=== PATIENT | female | born 1950 | race Hispanic/Latino ===

== ENCOUNTER 2017-08-03 12:41 | Observation (INO) | payer MEDICARE, OTHER ==
[~2017-08-03] VITALS: Ht 154.9 cm; Wt 77.1 kg
[2017-08-03] MEDS ORDERED: SODIUM CHLORIDE 0.9% 1000ML 1,000 ML IV ONE (13:19)
[2017-08-03 13:21] LABS: EOSINOPHILS % (AUTO) 3.4 % (0.0-8.0); HEMATOCRIT 36.3 % (36-48); LYMPHOCYTES % (AUTO) 26.8 % (21.0-51.0); MEAN CORPUSCULAR HEMOGLOBIN 31.2 pg (27.0-33.0); MEAN CORPUSCULAR HGB CONC 34.4 g/dL (32.0-36.0); MEAN CORPUSCULAR VOLUME 90.7 fL (79-99); MONOCYTES % (AUTO) 7.9 % (3.0-13.0); NEUTROPHILS % (AUTO) 60.9 % (40.0-77.0); PLATELET COUNT (AUTO) 352 K/uL (130-400); RED BLOOD CELL COUNT(AUTO) 4.01 MIL/uL (4.00-5.50); RED CELL DISTRIBUTION WIDTH 13.4 % (11.0-15.5); WHITE BLOOD COUNT (AUTO) 11.2 K/uL (4.8-10.8)
[2017-08-03 13:29] LABS: CREATININE 0.7 mg/dL (0.5-1.5); POTASSIUM 3.7 mmol/L (3.5-5.1)
[2017-08-03 13:33] LABS: ALBUMIN 3.3 g/dL (3.5-5.0); BILIRUBIN,TOTAL 0.6 mg/dL (0.2-1.0)
[2017-08-03 13:34] LABS: INR 0.95 (0.85-1.15); PARTIAL THROMBOPLASTIN TIME 28.2 SEC (26.3-35.5)
[2017-08-03] MEDS ORDERED: ASPIRIN 325 MG TABLET ONE (14:36)
[2017-08-03 16:00] VITALS: BP 145/80
[2017-08-03] MEDS ORDERED: LORA10CA9 PO (17:09)
[2017-08-03] MEDS ORDERED: BENZ-51 PO (17:09)
[2017-08-03 19:00] VITALS: BP 141/78
[2017-08-03] MEDS ORDERED: ACETAMINOPHEN 325 MG TAB PO PRN (20:45)
[2017-08-03 23:00] VITALS: BP 135/70
[2017-08-04 03:00] VITALS: BP 125/69
[2017-08-04 06:00] LABS: HEMATOCRIT 35.6 % (36-48); MEAN CORPUSCULAR HEMOGLOBIN 30.9 pg (27.0-33.0); MEAN CORPUSCULAR HGB CONC 34.1 g/dL (32.0-36.0); MEAN CORPUSCULAR VOLUME 90.6 fL (79-99); PLATELET COUNT (AUTO) 381 K/uL (130-400); RED BLOOD CELL COUNT(AUTO) 3.93 MIL/uL (4.00-5.50); RED CELL DISTRIBUTION WIDTH 13.7 % (11.0-15.5); WHITE BLOOD COUNT (AUTO) 11.3 K/uL (4.8-10.8)
[2017-08-04 06:20] LABS: CREATININE 0.7 mg/dL (0.5-1.5); POTASSIUM 4.1 mmol/L (3.5-5.1)
[2017-08-04 07:28] LABS: BASOPHILS % (MANUAL) 2 % (0-2); EOSINOPHILS % (MANUAL) 2 % (1-6); LYMPHOCYTES % (MANUAL) 27 % (22-44); MAN.DIFF COMMENT-IMPRESSION MANUAL DIFFERENTIAL; MONOCYTES % (MANUAL) 2 % (2-9); PLATELET MORPHOLOGY COMMENT ADEQUATE; SEGMENTED NEUTROPHILS % 67 % (40-70)
[2017-08-04 08:00] VITALS: BP 130/76
[2017-08-04] MEDS ORDERED: ASPIRIN 325 MG TABLET PO SCH (09:00)
[2017-08-04] MEDS ORDERED: LISINOPRIL 40 MG TABLET PO SCH (09:00)
[2017-08-04 11:00] VITALS: BP 117/81
[2017-08-04 16:00] VITALS: BP 112/68
[2017-08-04] MEDS ORDERED: ATORVASTATIN CALCIUM 40 MG TABLET PO SCH (21:00)
[2017-08-05] MEDS ORDERED: LISINOPRIL 10 MG TABLET PO SCH (09:00)
== END 2017-08-04 19:40 | disposition home or self-care (01) ==
LOC: EDH 12:41 → 3BH 14:00
PROVIDERS: ADMIT Internal Medicine Infectious Disease; ATTEND Internal Medicine Infectious Disease
DX: R29.810 Facial weakness (principal); E78.5 Hyperlipidemia, unspecified; I10 Essential (primary) hypertension; D72.829 Elevated white blood cell count, unspecified; Z79.01 Long term (current) use of anticoagulants
CPT/HCPCS: 36415 ×2; 70450; 70544; 70551; 80048; 80053; 80061; 82948; 83735; 84484; 85025 ×2; 85610; 85730; 93005; 93306; 93880; 99285; G0378 ×30; J7030

== ENCOUNTER 2019-01-02 16:30 | Inpatient (IN) | payer OTHER ==
[~2019-01-02] VITALS: Ht 162.6 cm; Wt 67.0 kg
[~2019-01-02 16:30] MED LIST: BENZ-51 PO; LORA10CA9 PO
[2019-01-02] MEDS ORDERED: IPRATROPIUM/ALBUTEROL SULFATE 3 ML SOLUTION IH ONE (17:00)
[2019-01-02] MEDS ORDERED: MORPHINE SULFATE 2 MG/ML 1ML SYG ONE (17:06)
[2019-01-02 17:24] LABS: BASOPHILS % (AUTO) 0.5 % (0.0-5.0); EOSINOPHILS % (AUTO) 0.3 % (0.0-8.0); HEMATOCRIT 38.8 % (36-48); LYMPHOCYTES % (AUTO) 8.4 % (21.0-51.0); MEAN CORPUSCULAR HEMOGLOBIN 29.6 pg (27.0-33.0); MEAN CORPUSCULAR HGB CONC 32.4 g/dL (32.0-36.0); MEAN CORPUSCULAR VOLUME 91.4 fL (79-99); MONOCYTES % (AUTO) 2.4 % (3.0-13.0); NEUTROPHILS % (AUTO) 88.4 % (40.0-77.0); NUCLEATED RED BLOOD CELLS 0.1 % (0.0-0.19); PLATELET COUNT (AUTO) 417 K/uL (130-400); RED BLOOD CELL COUNT(AUTO) 4.25 MIL/uL (4.00-5.50); RED CELL DISTRIBUTION WIDTH 17.5 % (11.0-15.5); WHITE BLOOD COUNT (AUTO) 21.1 K/uL (4.8-10.8)
[2019-01-02 17:37] LABS: CREATININE 0.6 mg/dL (0.5-1.5); POTASSIUM 4.3 mmol/L (3.5-5.1)
[2019-01-02 23:19] VITALS: BP 124/69
[2019-01-03] MEDS ORDERED: IPRATROPIUM/ALBUTEROL SULFATE 3 ML SOLUTION IH ONE (01:10)
[2019-01-03] MEDS ORDERED: CEFTRIAXONE SODIUM 1 GM IVP SCH (02:00)
[2019-01-03] MEDS: IPRATROPIUM/ALBUTEROL SULFATE 3 ML SOLUTION IH SCH ×6 (02:00→21:39)
[2019-01-03] MEDS ORDERED: SODIUM CHLORIDE 0.9% 250 ML IV ONE (02:59)
[2019-01-03 03:00] VITALS: BP 117/71
[2019-01-03] MEDS ORDERED: VANCOMYCIN PROTOCOL PER PHARMACY IV SCH (07:15)
[2019-01-03 07:53] VITALS: BP 123/67
[2019-01-03] MEDS: VANCOMYCIN 1GM+NS 250ML 250 ML IV SCH ×2 (08:19→20:21)
--- NOTE | 2019-01-03 11:06 | NUR ---
Patient's saturation was 81% on nonrebreather mask. Spoke to patient, patient's and son, encouraging the use of the bipap. Son stated patient could not tolerate mask due to anxiety. Titrated pressure for patient toleration and ended up with CPAP of 8 with 100% FiO2. Because patient was tachycardic, breathing treatment not administered at this time. Saturation of 93% achieved with CPAP Addendum: 01/03/19 at 1118 by JOSE COOPER RT Amended: Links added.
[2019-01-03] MEDS: ZOSYN 3.375GM+NS 50ML 50 ML IV SCH ×3 (11:13→22:55)
[2019-01-03 11:26] VITALS: BP 135/71
--- NOTE | 2019-01-03 11:35 | NUR ---
DR BAY PAGED RETURN CALL INFORMED OF PATIENT CHANGED FROM B-PAP TO C-PAP AND PATIENT BEING HAVING ANXIETY AND ORDERS RECEIVED FOR ATIVAN 1 MG IV EVERY 6 HOUR PRN AND MORPHINE 2 MG IV EVERY 6 HOURS PRN, ORDERS PLACED
[2019-01-03] MEDS: LORAZEPAM 2 MG/ML 1 ML VIAL IVP PRN ×3 (11:50→20:54)
[2019-01-03] MEDS: MORPHINE SULFATE 2 MG/ML 1ML SYG IVP PRN ×2 (11:52→17:18)
[2019-01-03 16:00] VITALS: BP 128/74
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
[2019-01-03 19:00] VITALS: BP 129/80
[2019-01-03] MEDS ORDERED: KETOROLAC TROMETHAMINE 15MG/ML IV PRN (20:15)
[2019-01-03] MEDS ORDERED: KETOROLAC TROMETHAMINE 15MG/ML ONE (20:18)
[2019-01-03] MEDS ORDERED: LORA0.5T83 PO (20:21)
[2019-01-03] MEDS ORDERED: PRED20TA3 PO (20:32)
[2019-01-03] MEDS ORDERED: ACET650S14 RC (20:32)
[2019-01-03] MEDS ORDERED: AMLO5TAB9 PO (20:32)
[2019-01-03] MEDS ORDERED: SENN8.6T32 PO (20:32)
[2019-01-03] MEDS ORDERED: MONT10TA24 PO (20:32)
[2019-01-03] MEDS ORDERED: MORP5L PO (20:32)
[2019-01-03 23:00] VITALS: BP 100/56
[2019-01-04 03:00] VITALS: BP 113/77
[2019-01-04] MEDS: LORAZEPAM 2 MG/ML 1 ML VIAL IVP PRN (03:08)
[2019-01-04 05:08] LABS: HEMATOCRIT 39.5 % (36-48); MEAN CORPUSCULAR HEMOGLOBIN 29.9 pg (27.0-33.0); MEAN CORPUSCULAR HGB CONC 32.2 g/dL (32.0-36.0); MEAN CORPUSCULAR VOLUME 92.9 fL (79-99); PLATELET COUNT (AUTO) 403 K/uL (130-400); RED BLOOD CELL COUNT(AUTO) 4.25 MIL/uL (4.00-5.50); RED CELL DISTRIBUTION WIDTH 17.7 % (11.0-15.5)
[2019-01-04 05:36] LABS: CREATININE 1.1 mg/dL (0.5-1.5); POTASSIUM 4.2 mmol/L (3.5-5.1)
[2019-01-04 05:38] LABS: BAND NEUTROPHILS % (MANUAL) 17 % (0-2); LYMPHOCYTES % (MANUAL) 14 % (22-44); MAN.DIFF COMMENT-IMPRESSION MANUAL DIFFERENTIAL; MONOCYTES % (MANUAL) 8 % (2-9); PLATELET MORPHOLOGY COMMENT ADEQUATE; SEGMENTED NEUTROPHILS % 61 % (40-70)
[2019-01-04] MEDS: IPRATROPIUM/ALBUTEROL SULFATE 3 ML SOLUTION IH SCH ×3 (06:00→13:48)
[2019-01-04 08:00] VITALS: BP 123/69
[2019-01-04] MEDS: ZOSYN 3.375GM+NS 50ML 50 ML IV SCH ×2 (08:08→16:40)
[2019-01-04] MEDS: MORPHINE SULFATE 4 MG/1ML SYG IV SCH ×3 (08:30→16:40)
[2019-01-04] MEDS: VANCOMYCIN 1GM+NS 250ML 250 ML IV SCH (08:31)
--- NOTE | 2019-01-04 08:48 | NUR ---
DR. MONROE HERE EARLIER AND ORDERED MORPHINE 4MG IV Q 4 HRS. SPOUSE REFUSING UNTIL FAMILY GETS HERE.
--- NOTE | 2019-01-04 10:12 | NUR ---
HOSPICE/EMOTIONAL SUPPORT Sw met with pt 's daughter who states Dr Andrew was there earlier and told them that pt will probably pass today. Daughter states that they will not be returning to hospice and pt will pass here. Sw provided emotional support
--- NOTE | 2019-01-04 11:41 | NUR ---
INPT HOSPICE Sw met with pt's daughter Homer and educated on inpt hospice services. Daughter is agreeable to referral to [facility]. SW spoke to Laura and made referral, and faxed pt info to office. Waiting for response on acceptance
[2019-01-04 12:00] VITALS: BP 104/66
[2019-01-04] MEDS ORDERED: VANCOMYCIN 1GM+NS 250ML 250 ML IV SCH (12:00)
[2019-01-04 16:00] VITALS: BP 103/68
--- NOTE | 2019-01-04 17:17 | NUR ---
IN HOSPICE Sw spoke to Laura at [facility]. Pt has been accepted, pending Leslye nurse to admit.
--- NOTE | 2019-01-04 18:43 | NUR ---
SERVICES HAVE BEEN TRANSFERRED TO [facility], DR MONROE WILL REMAIN ATTENDING MD.
== END 2019-01-04 17:27 | disposition hospice, inpatient (51) | DRG 189 ==
LOC: EDH 16:30 → EDHIP 21:55 → OBSVTOIN 21:55 → 3DH 22:27
PROVIDERS: ADMIT Internal Medicine; ATTEND Internal Medicine
PROC: 5A09357 Assistance with Respiratory Ventilation, Less than 24 Consecutive Hours, Continuous Positive Airway Pressure (ICD-10-PCS; principal; 2019-01-03)
DX: J96.21 Acute and chronic respiratory failure with hypoxia (principal); J90 Pleural effusion, not elsewhere classified; J84.10 Pulmonary fibrosis, unspecified; J44.9 Chronic obstructive pulmonary disease, unspecified; D72.829 Elevated white blood cell count, unspecified; E11.9 Type 2 diabetes mellitus without complications; F41.9 Anxiety disorder, unspecified; Z51.5 Encounter for palliative care; Z99.81 Dependence on supplemental oxygen
CPT/HCPCS: 36415; 71045; 80048; 83880; 85025; 85027; 85060; 93005; 94640; 94660; 94664; 99291; G0378; J0696; J1885; J2060; J2270; J2543; J3370; J7030

== ENCOUNTER 2019-01-04 17:28 | Inpatient (IN) | payer OTHER ==
[~2019-01-04] VITALS: Ht 152.4 cm; Wt 61.2 kg
[~2019-01-04 17:28] MED LIST changes: +ACET650S14 RC; +AMLO5TAB9 PO; -BENZ-51 PO; +LORA0.5T83 PO; -LORA10CA9 PO; +MONT10TA24 PO; +MORP5L PO; +PRED20TA3 PO; +SENN8.6T32 PO
[2019-01-04 19:00] VITALS: BP 128/65
[2019-01-04] MEDS ORDERED: MORPHINE SULFATE 2 MG/ML 1ML SYG IVP PRN (20:00)
[2019-01-04] MEDS ORDERED: ONDANSETRON HCL 4 MG/2 ML VIAL IVP PRN (20:15)
[2019-01-04] MEDS ORDERED: GLYCOPYRROLATE 1 MG/5 ML SYRINGE IV PRN (20:15)
[2019-01-04] MEDS ORDERED: ALBUTEROL SULFATE 0.083% 2.5 MG/3 ML INH IH PRN (20:15)
[2019-01-04] MEDS ORDERED: BISACODYL 10 MG SUPP.RECT RC PRN (20:15)
[2019-01-04] MEDS ORDERED: ACETAMINOPHEN 650 MG SUPPOSITORY RC PRN (20:15)
[2019-01-04] MEDS: MORPHINE SULFATE 2 MG/ML 1ML SYG IVP PRN ×2 (21:05→23:35)
[2019-01-04] MEDS: LORAZEPAM 2 MG/ML 1 ML VIAL IVP PRN (21:34)
[2019-01-04] MEDS: IPRATROPIUM/ALBUTEROL SULFATE 3 ML SOLUTION IH SCH (21:42)
[2019-01-04 23:00] VITALS: BP 97/65
[2019-01-05] MEDS: IPRATROPIUM/ALBUTEROL SULFATE 3 ML SOLUTION IH SCH ×2 (01:21→06:00)
[2019-01-05] MEDS: LORAZEPAM 2 MG/ML 1 ML VIAL IVP PRN (02:11)
[2019-01-05 03:00] VITALS: BP 84/55
[2019-01-05 07:00] VITALS: BP 74/49
[2019-01-05] MEDS ORDERED: MORPHINE SULFATE 4 MG/1ML SYG IV SCH (08:15)
[2019-01-05] MEDS ORDERED: MORPHINE SULFATE 4 MG/1ML SYG ONE (08:15)
--- NOTE | 2019-01-05 10:17 | NUR ---
EMOTIONAL SUPPORT EMOTIONAL SUPPORT SW did follow up visit on pt and family. Family very emotional at bedside. SW called Adrienne at [facility] and requested scrub technician and SW visit. Per Adrienne, Dr Andrew is continuing as attending and all orders must be from him.
--- NOTE | 2019-01-05 10:56 | NUR ---
PRONOUNCEMENT PT IS DNR AND IS ON HOSPICE BENEFIT, FAMILY AT BEDSIDE. PT IS UNRESPONSIVE, NO HEART TONES, NO RESPIRATIONS AND BILATERAL PUPILS UNREACTIVE TO LIGHT. PT PRONOUNCED AT THIS TIME.
--- NOTE | 2019-01-05 11:21 | NUR ---
Pt . Sw contacted by [facility] SW. She was with family when pt and she provided emotional support.
== END 2019-01-05 10:56 | disposition expired | DRG 189 ==
LOC: 3DH 17:28
PROVIDERS: ADMIT Internal Medicine; ATTEND Internal Medicine
DX: J96.90 Respiratory failure, unspecified, unspecified whether with hypoxia or hypercapnia (principal); J84.10 Pulmonary fibrosis, unspecified; Z66 Do not resuscitate
CPT/HCPCS: 94660; G0378; J2060; J2270